=== PATIENT | female | born 1990 | race Caucasian/White ===

== ENCOUNTER 2016-11-18 12:49 | Emergency (ER) | payer OTHER ==
[~2016-11-18] VITALS: Ht 170.2 cm; Wt 83.6 kg
[2016-11-18] MEDS ORDERED: HYDROCODONE/ACETAMINOPHEN 10-325 MG TABLET PO ONE (15:00)
[2016-11-18 16:54] VITALS: BP 116/71
== END 2016-11-18 16:56 | disposition home or self-care (01) ==
LOC: EMS 12:51
DX: S93.402A Sprain of unspecified ligament of left ankle, initial encounter (principal); S93.602A Unspecified sprain of left foot, initial encounter; M79.672 Pain in left foot; J45.909 Unspecified asthma, uncomplicated; Z91.040 Latex allergy status; Y99.9 Unspecified external cause status; W45.8XXA Other foreign body or object entering through skin, initial encounter; Y93.89 Activity, other specified; Y92.9 Unspecified place or not applicable; Z91.81 History of falling
CPT/HCPCS: 29515; 99284